=== PATIENT | female | born 1995 | race Caucasian/White ===

== ENCOUNTER 2018-01-16 05:30 | Inpatient (IN) ==
[2018-01-16] MEDS ORDERED: CEFAZOLIN PREMIX (MC ONLY) 2 GM/50 ML BAG IV ONE (05:49)
[2018-01-16] MEDS ORDERED: FAMOTIDINE PB 20 MG/50 ML BAG IV ONE (05:49)
[2018-01-16] MEDS ORDERED: CITRIC ACID/SODIUM CITRATE 30ml PO ONE (05:49)
[2018-01-16] MEDS ORDERED: NOZIN NASAL SWAB NAS ONE ×2 (05:49)
[2018-01-16] MEDS ORDERED: NOZIN NASAL SWAB NAS SCH (06:00)
[2018-01-16 06:11] VITALS: BMI 27.7
[2018-01-16] MEDS: LR 1,000 ML IV SCH ×3 (06:13→09:18)
[2018-01-16] MEDS ORDERED: MORPHINE SULFATE PF 5mg/10ml INJ (Duramorph) ONE (07:01)
[2018-01-16] MEDS ORDERED: FentaNYL 100 MCG/2 ML INJECTION ONE (07:02)
[2018-01-16] MEDS ORDERED: ONDANSETRON 4 MG/2 ML INJECTION IVP PRN (07:07)
[2018-01-16] MEDS ORDERED: NALBUPHINE 10 MG/ML INJECTION IVP PRN (07:07)
[2018-01-16] MEDS ORDERED: NALOXONE 2 MG/2 ML INJECTION PFS IVP PRN (07:07)
--- NOTE | 2018-01-16 07:07 | Anesthesia Preoperative Report ---
Anesthesia Epidural/Spinal Rec - Date and Time Date: 01/16/18 Procedure: Plan: Spinal - Vital Signs Vital Signs: Temperature 98 F 01/16/18 06:09 Pulse Rate 82 01/16/18 06:09 Respiratory Rate 16 01/16/18 06:09 Blood Pressure 109/67 01/16/18 06:09 Pulse Oximetry 98 01/16/18 06:09 NPO since: 2330 /Para: P:1 Heart Rate: 125 - Medictaions & Allergies Inpatient Medications: Current Medications Lactated Ringer's (Lactated Ringers) 1,000 mls @ 500 mls/hr IV .Q2H [facility] Last Admin: 01/16/18 06:13 Dose: 500 mls/hr Isopropyl Alcohol (Nozin Nasal Swab) 1 each MIKALA 0600,1400,2200 [facility] Last Admin: 01/16/18 06:40 Dose: Not Given Allergies/Adverse Reactions: Allergies Allergy/AdvReac Type Severity Reaction Status Date / Time banana Allergy Severe DYSPNEA Verified 06/17/12 15:01 cinnamon Allergy Severe ANAPHYLACTIC Verified 06/17/12 15:01 SHOCK latex Allergy Intermediate Swelling Verified 01/02/18 10:22 Pistachios Allergy Severe ANAPHYLACTIC Uncoded 06/17/12 15:01 SHOCK - Home Medications Home Medications: Home Medications Medication Instructions Recorded Confirmed Type Vits W-Ca,Fe,Fa(<1MG) 1 tab PO DAILY #0 06/17/12 01/15/18 History () - Medical History Respiratory: DENIES: Sleep Apnea Cardiovascular: Reports: Other (occasional PVCs - no meds) Gastrointestional: Reports: Gastroesophageal Reflux Disease Other History: Reports: Now - Surgical History Reproductive Surgery/Treatment: Reports: Section, Other (wisdom teeth) Anesthesia Reactions: None Hx Family Anesthesia Reaction: No History of Motion Sickness: No - Social History Smoking Status: Never smoker Second Hand Exposure: No Substance Use Type: does not use Alcohol Intake Frequency: does not drink Hx Chewing Tobacco Use: No - Pertinent Findings Lab Data: CBC and BMP 01/16/18 06:07 - Physical Exam Respiratory Exam: lungs clear, bilateral breath sounds equal Cardiovascular Exam: regular rate and rhythm - Airway Assessment Mallampati Score: I TMD: 3 Fingerbreadths Neck Extension: good Overall Assessment: no airway concerns - ASA ASA Score: 2 - Discussion Discussion: Discussed risks/options/alternatives of anesthesia and questions answered. Patient consents. Nursing pain assessment noted. Anesthesia Discussion: other (boyfriend) Attestation Statement: Prior to the delivery of any anesthetic medication, I examined the patient, developed the plan, obtained the patient's consent and discussed the risk and benefits of the procedure with the patient/guardian.
[2018-01-16] MEDS ORDERED: DiphenhydrAMINE 50 MG/ML INJECTION ONE ×2 (07:31→08:06)
[2018-01-16] MEDS ORDERED: OXYTOCIN BOLUS BAG 30 UNIT/500 ML ML IV SCH (07:45)
[2018-01-16] MEDS ORDERED: EPHEDRINE 50mg/ml INJECTION ONE (08:06)
[2018-01-16] MEDS ORDERED: ONDANSETRON 4 MG/2 ML INJECTION ONE (08:06)
[2018-01-16] MEDS ORDERED: PHENYLEPHRINE INJ 10 MG/ML VIAL IV ONE (08:06)
[2018-01-16] MEDS ORDERED: ACETAMINOPHEN 500 MG TABLET PO PRN (09:00)
[2018-01-16] MEDS ORDERED: SIMETHICONE 80 MG CHEWABLE TABLET PO PRN (09:00)
[2018-01-16] MEDS ORDERED: MEASLES-MUMPS-RUBELLA VACCINE 0.5ml INJECTION SQ ONE (09:00)
[2018-01-16] MEDS ORDERED: HYDROCORTISONE 2.5% CREAM 30gm RECTALLY PRN (09:00)
[2018-01-16] MEDS ORDERED: D5LR 1,000 ML IV SCH (09:00)
[2018-01-16] MEDS ORDERED: DiphenhydrAMINE 25 MG CAPSULE PO PRN (09:00)
[2018-01-16] MEDS ORDERED: CALCIUM CARBONATE Chewable 500mg TABLET PO PRN (09:00)
[2018-01-16] MEDS: DOCUSATE CALCIUM 240 MG CAPSULE PO SCH (09:17)
[2018-01-16] MEDS: OXYTOCIN DRIP 30 UNIT/500 ML ML IV SCH ×2 (09:17→12:51)
[2018-01-16] MEDS: IBUPROFEN 800 MG TABLET PO PRN ×2 (09:58→19:21)
[2018-01-16] MEDS: HYDROCODONE/APAP 5mg/325mg TABLET PO PRN ×3 (09:59→19:21)
[2018-01-16] MEDS: SIMETHICONE 80 MG CHEWABLE TABLET PO SCH ×3 (11:15→19:21)
--- NOTE | 2018-01-16 14:03 | Operative Note ---
DATE OF OPERATION 01/16/2018 PREOPERATIVE DIAGNOSIS Term , prior x1. POSTOPERATIVE DIAGNOSIS Term , prior x1. PROCEDURES Repeat low transverse section SURGEON Nicole Velasquez MD ANESTHESIA Combo spinal/epidural [facility] Zak Cruz CRNA EBL 800 mL DESCRIPTION OF PROCEDURE Ms. Saleh was brought to the OR and given regional analgesia to good effect. She was then placed on the OR table in the supine position with left lateral displacement. A Combs catheter was placed to dependent drain. The abdomen was prepped and draped in the usual sterile fashion. A Pfannenstiel skin incision was made through the patient's prior scar. This was carried down to fascia. Fascia was incised transversely. Fascia was then tented up. This was bluntly and sharply dissected free of rectus muscles. Rectus muscles were bluntly divided. The peritoneum was tented up and sharply entered. This was extended vertically. The bladder blade was then inserted. The bladder was noted to be well below our area of operation. A low transverse uterine incision was made with a sharp knife. There was clear amniotic fluid. Baby was delivered in the vertex ROP presentation without difficulty. Baby was bulb suctioned on the abdomen. Cord was doubly clamped and baby was then given to the pediatric team for care. This is a liveborn male with Apgars of 8/9. He weighed 7 pounds 9.7 ounces. The placenta was then expressed intact and the uterus exteriorized. We cleared the myometrium of membranes, then began our closure. Myometrium was reapproximated with a running locking 0 Monocryl. There was a small area of bleeding on the right corner; this was oversewn with a running locking 0 Monocryl. Uterus, tubes and ovaries were noted to be grossly normal and returned to the abdominal cavity. We then reapproximated peritoneum with a running nonlocking 2-0 Vicryl. Fascia was reapproximated with running nonlocking 0 Monocryl. Skin edges were reapproximated with subcuticular style 3 -0 undyed Vicryl. The wound was dressed with Steri-Strips and a sterile dressing. Counts were correct postoperatively x2. The urine remained clear and free-flowing throughout the procedure. Ms. Saleh is being transferred to recovery in stable condition. [facility] HOSPITALLeigh Ann
[2018-01-17] MEDS: SIMETHICONE 80 MG CHEWABLE TABLET PO SCH ×4 (01:10→21:41)
[2018-01-17] MEDS: HYDROCODONE/APAP 5mg/325mg TABLET PO PRN ×4 (01:11→20:03)
[2018-01-17] MEDS: IBUPROFEN 800 MG TABLET PO PRN ×2 (08:04→20:03)
[2018-01-17] MEDS: DOCUSATE CALCIUM 240 MG CAPSULE PO SCH (08:04)
--- NOTE | 2018-01-17 11:13 | OB/GYN Progress Note ---
OB-PP Progress Note - General POD:: POD1 Maternal Group B Strep: Negative Maternal blood type: O+ Maternal Rubella Status: Immune - Subjective Date: 01/17/18 Lochia: Minimal Pain: controlled Voiding: voiding Nausea or Vomiting Present: No - Objective Vital Signs: Last Vital Signs Temp 97.8 F 01/17/18 08:20 Pulse 66 01/17/18 08:20 Resp 14 01/17/18 08:20 BP 113/67 01/17/18 08:20 Pulse Ox 99 01/17/18 08:20 General: alert and oriented Abdomen: fundus firm, non-tender Incision: normal, dry, intact Extremities: non-tender Edema: none Laboratory: Laboratory Results - last 24 hr 01/16/18 13:42 WBC 18.5 H D RBC 4.40 Hgb 11.5 L Hct 35.8 L MCV 81.4 MCH 26.1 MCHC 32.1 RDW Std Deviation 41.1 Plt Count 162 MPV 12.0 - Assessment Assessment: SP, Repeat C/S - Plan Plan: routine care Expected date of discharge: 01/18/18
[2018-01-17] MEDS ORDERED: ONDANSETRON ODT 4 MG TABLET PO PRN (13:24)
--- NOTE | 2018-01-17 16:42 | Anesthesia Postoperative Note ---
- Date and Time Date: 01/17/18 Time: 16:42 - Status Patient Participated in Evaluation: Patient Participated in Person Vital Signs: Temperature 98.7 F 01/17/18 13:00 Pulse Rate 80 01/17/18 13:00 Respiratory Rate 14 01/17/18 13:00 Blood Pressure 106/58 01/17/18 13:00 Pulse Oximetry 100 01/17/18 13:00 Respiratory Function: Airway Patent, Regular Respirations Cardiovascular Function: Regular Pulse Mental Status: Alert and Oriented Pain Intensity: 0 Hydration: Taking PO Fluids Complications During Recover: None Apparent - Follow-Up Instructions Instructions: Per Surgeon
[2018-01-18] MEDS: HYDROCODONE/APAP 5mg/325mg TABLET PO PRN (05:09)
[2018-01-18] MEDS: IBUPROFEN 800 MG TABLET PO PRN (05:10)
[2018-01-18 05:54] VITALS: RESP 20; O2SAT 98
[2018-01-18] MEDS: SIMETHICONE 80 MG CHEWABLE TABLET PO SCH ×2 (06:00→08:56)
[2018-01-18] MEDS: DOCUSATE CALCIUM 240 MG CAPSULE PO SCH (08:56)
[2018-01-18 15:54] VITALS: BP 112/64; PULSE 68; TEMP 98.1
== END 2018-01-18 10:20 | disposition home or self-care (01) | DRG 766 ==
LOC: MC 05:30
PROVIDERS: ADMIT Obstetrics & Gynecology; ATTEND Obstetrics & Gynecology